=== PATIENT | female | born 2000 | race Caucasian/White ===

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

== ENCOUNTER 2018-09-20 02:13 | Emergency (ER) | payer OTHER ==
[~2018-09-20] VITALS: Ht 167.6 cm; Wt 94.8 kg
[2018-09-20 02:34] VITALS: Ht 167.6 cm; Wt 94.8 kg
[2018-09-20 03:11] LABS: BASOPHIL % 0.5 % (0-2); PLATELET COUNT 264 x10^3mcL (130-400); RED CELL DISTRIBUTION WIDTH 13.5 % (11.5-14.5)
[2018-09-20 03:15] LABS: CALCIUM 7.8 mg/dL (8.5-10.1); CARBON DIOXIDE 27.8 mmol/L (21-32); CHLORIDE SERUM 107 mmol/L (98-107); CREATININE SERUM 0.8 mg/dL (0.6-1.0); GFR1 > 60 mL/min; GLUCOSE SERUM 155 mg/dL (74-106); POTASSIUM SERUM 4.1 mmol/L (3.5-5.1); SODIUM SERUM 141 mmol/L (136-145)
[2018-09-20 03:19] LABS: ALKALINE PHOSPHATASE 102 U/L (46-116); ALT/SGPT 21 U/L (14-59); AST/SGOT 13 U/L (15-37); LIPASE 77 IU/L (73-393); TOTAL PROTEIN, SERUM 6.4 g/dL (6.4-8.2)
[2018-09-20 05:02] VITALS: BP 103/56
== END 2018-09-20 05:02 | disposition home or self-care (01) ==
LOC: ED 02:13
PROVIDERS: Emergency Medicine
DX: R10.33 Periumbilical pain (principal); R19.7 Diarrhea, unspecified
CPT/HCPCS: 36415; J0500